=== PATIENT | male | born 1950 | race Caucasian/White ===

== ENCOUNTER 2023-08-30 08:48 | Outpatient (CLI) | payer MEDICARE, OTHER, SELFPAY ==
--- NOTE | 2023-08-30 09:05 | ECG_ITS ---
Measurements Intervals [place] Rate: 59 P: 25 NH: 197 QRS: -38 QRSD: 104 T: 120 QT: 400 QTc: 397 Interpretive Statements SINUS BRADYCARDIA LEFT AXIS DEVIATION PATTERN CONSISTENT WITH PULMONARY DISEASE MODERATE T-WAVE ABNORMALITY, CONSIDER LATERAL ISCHEMIA ABNORMAL ECG NO PREVIOUS ECG AVAILABLE FOR COMPARISON Electronically Signed On 08-30-2023 17:16:42 CDT by Dave Michael M.D.
== END 2023-08-30 08:49 | disposition home or self-care (01) ==
LOC: ANHSURGERY 08:54
PROVIDERS: PCP Family Medicine; Visit Provider Surgery
DX: I21.9 Acute myocardial infarction, unspecified (principal); K40.90 Unilateral inguinal hernia, without obstruction or gangrene, not specified as recurrent; R94.31 Abnormal electrocardiogram [ECG] [EKG]
CPT/HCPCS: 36415; 86850; 86900; 86901; 93005

== ENCOUNTER 2023-09-05 02:11 | Day surgery (SDC) | payer MEDICARE, OTHER, SELFPAY ==
[2023-08-28 15:30] VITALS: BMI 29.3
--- NOTE | 2023-08-28 15:41 | PC.NURSE ---
Addendum entered by Abhay Saul RN 08/28/23 15:52: Shower day of surgery with and antibacterial soap called Hebiclense or Chlorhexadine Gluconate. Original Note: Report to the Outpatient Waiting Room, entrance under the green pavilion located off [facility], at time _1030_ on date _[id number]_. Planned Procedure Time: _1230_. Time changes happen often and if your time is changed the preop area will call you the afternoon before. - You and your visitor will be asked to self-screen and do not enter if you have any COVID symptoms. - A mask is optional within the hospital at this time. Patients may have clear liquids (water, carbonated beverages, clear teas, apple juice) until 3 hours prior to surgery with a maximum of 20 ounces. - No food from midnight until time of surgery Take the following medications with a SIP of water the morning of surgery: __Carvidilol DO NOT STOP ANY OF YOUR OTHER PRESCRIPTION MEDICATIONS PRIOR TO SURGERY ?EXCEPT THE FOLLOWING Medications to discontinue per physician Multivitamin, Vitamin C, Vitamin D3 Date to take last [id number] Please no make-up, nail panamanian, hairspray, perfume, deodorant, or body powder the day of surgery. No jewelry (including any body piercings) or valuables the day of surgery, leave them at home. Please take a shower or bath the night before, or the morning of, surgery with an antibacterial soap. Wear comfortable, loose fitting clothing. - Jewelry must be removed prior to entering the operating room. Rings and piercings that are not removed may be cut off. - The hospital will not accept responsibility for valuables. - Please leave all valuables, including medications, at home the day of surgery. If you are going home after surgery, a licensed limo driver must drive you home. - NO public transportation without another adult if you receive anesthesia. - We recommend that an adult stay with you for 24 hours following discharge. - We also recommend that you do not drive, make important decision, drink alcoholic beverages, or take any drugs that were not prescribed by your health care provider for at least 24 hours after your discharge time. Follow any additional instructions given to you from your surgeon. If you or anyone in your household have experienced Covid symptoms in the past week, please notify your surgeon or the nurse liaison at the phone number below for possible testing. Telephone instructions given to _Patient__and asked if any additional questions and then verbalized understanding. Patient advised to call surgeon office or pre surgery nurse liaison [phone] if any additional questions.
--- NOTE | 2023-09-04 10:21 | PM.SD2 ---
Same Day Admit/Disch: HPI History of Present Illness Chief complaint: Rt Ing Hernia Narrative: Harmeet Leon is a 73 year old male who has had a bulge in the right groin for many years. Recently this has gotten larger and is occasionally painful. He was seen in the office and found to have a large but reducible right inguinal hernia. He is taken to surgery at this time for robotic laparoscopic repair of his right inguinal hernia. [facility] Past Medical History Medical History GERD (gastroesophageal reflux disease) Heart attack history Hypertension Surgical History Surgical History H/O hand surgery History of heart artery stent History of knee replacement History of laparoscopic appendectomy Hx laparoscopic cholecystectomy Family History Family History Other Diabetes mellitus Heart disease Hypertension Social History Social History Smoking packs per day: 1 Smoking cigarettes per day: 20.0 Years smoked: 35 Smoking pack-years: 35.00 Smoking status: Former smoker Tobacco type: cigarettes Smoking end date: 09/05/06 Alcohol intake: current Substance use: never Living arrangements: with family Occupation/Education: retired Spiritual care concerns: No Same Day Admit/Disch: Med Pre-admit Medications Home Medications Medication Instructions Recorded Confirmed Type amlodipine 5 mg-benazepril 10 mg 1 cap PO DAILY 07/30/23 08/28/23 History capsule ascorbate calcium (vitamin C) 500 500 mg PO DAILY 07/30/23 08/28/23 History mg tablet aspirin 81 mg capsule 81 mg PO DAILY 07/30/23 08/28/23 History carvedilol 3.125 mg tablet 3.125 mg PO Q12H 07/30/23 08/28/23 History cholecalciferol (vitamin D3) 125 125 mcg PO DAILY 07/30/23 08/28/23 History mcg (5,000 unit) capsule diclofenac sodium 75 mg 75 mg PO BID 07/30/23 08/28/23 History tablet,delayed release lvirhtfs-za-[id number] 300 mcg-K 60 1 tablet PO DAILY 07/30/23 08/28/23 History mcg-lycop 600 mcg-lutein 300 mcg tablet (Centrum Silver Men) omeprazole 20 mg capsule,delayed 20 mg PO DAILY 07/30/23 08/28/23 History release rosuvastatin 5 mg tablet 5 mg PO DAILY 07/30/23 08/28/23 History valacyclovir 500 mg tablet 500 mg PO DAILY 07/30/23 08/28/23 History ibuprofen 600 mg tablet 600 mg PO Q6H PRN pain #14 tabs 09/05/23 Rx oxycodone-acetaminophen 5 mg-325 0.5 - 1 tablet PO Q6H PRN pain #15 09/05/23 Rx mg tablet tabs Review of Systems Review of Systems All systems reviewed & are unremarkable except as noted in HPI and below (HPI and those items noted below) Constitutional Constitutional: Denies chills and Denies fever(s) Cardiovascular Cardiovascular: Denies chest pain, Denies diaphoresis, Denies dyspnea and Denies paroxysmal nocturnal dyspnea Respiratory Respiratory: Denies chest congestion, Denies cough and Denies dyspnea Integumentary/Breasts Skin/Breast: Denies lesions and Denies rash Exam Const: General: comfortable, no acute distress, alert and awake HENMT: Head: normocephalic and atraumatic Mouth: Yes Normal oral and palatal mucosa present Eyes: Conjunctivae: conjunctivae normal Pupils: Equal, round and reactive pupils present EOM: EOMs intact bilaterally Neck: Neck: normal visual inspection, no lymphadenopathy and nontender Resp: Effort & Inspection: normal respiratory effort Auscultation: clear to auscultation bilaterally Cardio: Rate: regular rate Rhythm: regular rhythm Heart sounds: no gallops, no murmurs and no rubs GI: Inspection: non-distended GI Palp: Yes Soft to palpation, No Tenderness to palpation present (GI), No Hepatomegaly present and No Splenomegaly present : Male General Exam: No edema, Yes hernia (Reducible large right inguinal hernia, minimal tenderness) and No tenderne
[2023-09-05] VITALS (10 sets, daily range): BP systolic 132–166; BP diastolic 62–79; PULSE 57–78; RESP 12–18; TEMP 36.1–36.6; O2SAT 92–98
[2023-09-05] MEDS: ACETAMINOPHEN 500 MG TABLET 1000 MG PO (10:44)
[2023-09-05] MEDS: LACTATED RINGERS 1,000 ML 30 ML IV CONT ×2 (11:15→14:42)
[2023-09-05] MEDS: KETOROLAC 15 MG/ML VIAL (*BKC) IV PUSH (11:18)
--- NOTE | 2023-09-05 11:18 | WPDANESEPPF ---
Anes - Initial Pre Proc Eval Procedure: Operation Date: 09/05/23 12:30 Proposed Procedures p Robotic Laparoscopic Right Inguinal Hernia Repair with Mesh - Johnathan Castro MD Date/Time: 09/05/23 11:18 Surgeon: Johnathan Castro MD Pre Op Diagnosis: Rt Ing Hernia Patient Data Age: 73 Gender: M Height: 1.83 m Weight: 99.4 kg Last Vital Signs Temp 98 F 09/05/23 10:51 Pulse 57 L 09/05/23 10:51 Resp 16 09/05/23 10:51 BP 149/79 H 09/05/23 10:51 Pulse Ox 98 09/05/23 10:51 O2 Del Method Room Air 09/05/23 10:51 Allergies Allergy/AdvReac Type Severity Reaction Status Date / Time No Known Allergies Allergy Verified 08/28/23 15:26 Home Medications Medication Instructions Recorded Confirmed Type amlodipine 5 mg-benazepril 10 mg 1 cap PO DAILY 07/30/23 08/28/23 History capsule ascorbate calcium (vitamin C) 500 500 mg PO DAILY 07/30/23 08/28/23 History mg tablet aspirin 81 mg capsule 81 mg PO DAILY 07/30/23 08/28/23 History carvedilol 3.125 mg tablet 3.125 mg PO Q12H 07/30/23 08/28/23 History cholecalciferol (vitamin D3) 125 125 mcg PO DAILY 07/30/23 08/28/23 History mcg (5,000 unit) capsule diclofenac sodium 75 mg 75 mg PO BID 07/30/23 08/28/23 History tablet,delayed release [id number]-[id number] 300 mcg-K 60 1 tablet PO DAILY 07/30/23 08/28/23 History mcg-lycop 600 mcg-lutein 300 mcg tablet (Centrum Silver Men) omeprazole 20 mg capsule,delayed 20 mg PO DAILY 07/30/23 08/28/23 History release rosuvastatin 5 mg tablet 5 mg PO DAILY 07/30/23 08/28/23 History valacyclovir 500 mg tablet 500 mg PO DAILY 07/30/23 08/28/23 History Patient hx anesthesia problems: none Family hx anesthesia problems: none Results Review: All pre-operative results and documents have been reviewed as part of the pre-operative evaluation. [facility] Past Medical History Medical History GERD (gastroesophageal reflux disease) Heart attack history Hypertension Surgical History Surgical History H/O hand surgery History of heart artery stent History of knee replacement History of laparoscopic appendectomy Hx laparoscopic cholecystectomy Family History Family History Other Diabetes mellitus Heart disease Hypertension Social History Social History Smoking packs per day: 1 Smoking cigarettes per day: 20.0 Years smoked: 35 Smoking pack-years: 35.00 Smoking status: Former smoker Tobacco type: cigarettes Smoking end date: 09/05/06 Alcohol intake: current Substance use: never Living arrangements: with family Occupation/Education: retired Spiritual care concerns: No Anes - Eval Final PreProcedure Day of Procedure 09/05/23 11:18 Patient weight: obese Heart: regular rate and rhythm Lungs: clear to auscultation Airway: Mallampati scale class II Neurological: alert and oriented Last oral intake: >/= 8 hours ASA classification: III Emergent: no Anesthetic plan: proceed Anesthesia type and monitoring: general ETT and standard monitoring Results Review: All pre-operative results and documents have been reviewed as part of the pre-operative evaluation. Informed Consent: The patient's anesthetic plan and its attendant risks and benefits were discussed with the patient/family/POA. Questions were solicited and answers provided to the satisfaction of the patient/family/POA.
--- NOTE | 2023-09-05 12:08 | WPDHPUPDATE1 ---
History and Physical Update Update Date/Time: 09/05/23 12:08 History and Physical has been reviewed, including an updated exam of the patient. There are NO changes in the patient's condition. Risks, benefits, and alternatives have been discussed and questions answered. Patient agrees to proceed with procedure.
[2023-09-05] MEDS: ceFAZolin 2 GM/D5W 50 ML 2 GM/50 ML BAG IVPB (12:27)
[2023-09-05] MEDS: BUPIVACAINE/EPINEPHRINE 0.5% 50 ML VIAL 30 ML INFILTRATE (13:07)
--- NOTE | 2023-09-05 14:32 | W.PM.PROC2 ---
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 Recently it has gotten bigger and is occasionally painful. He was seen in the office and found to have a reducible right inguinal hernia. He is taken to surgery now for robotic laparoscopic repair. Findings Patient had a large indirect right inguinal hernia that did extend over slightly into the direct space as well. There was no bowel involvement. Description of Procedure Patient was taken to the operating room in induced into general anesthesia. Prep and drape was carried out. The 3 trocar sites for the anticipated incisions were marked on the skin. Local was infiltrated into each of the incisions as well as the abdominal wall. Incisions were made and at 1st the varies needle was introduced. After adequate insufflation, an applied Medical 5 mm optical trocar was placed. This showed intraperitoneal location without any evidence of injury. The hernia defect was seen. The other 2 trocar sites had 8 mm robotic ports placed by the assistant operator under direct visualization. The camera was moved and the 5 mm port was then changed out for a 3rd 8 mm robotic port. Patient was placed in Trendelenburg. Robot was brought into the field. The camera was docked and targeted. The operating arms had instruments placed. The surgeon then went to the robotic console. A peritoneal flap was created over the inguinal canal area. The peritoneum was carefully dissected free from the abdominal wall. We proceeded from lateral to medial. On the medial aspect, dissection was aimed closer to the posterior aspect of the right rectus muscle. This plane was followed down to Peterson's ligament and the pubis. Dissection extended across the midline in the left rectus muscle, medial border, was exposed. Dissection was carried out so that the mesh would be able to go across the midline medially. I then dissected down to the pubis and Peterson's ligament. We dissected some fatty tissue off of Peterson's ligament and then dissected a bit below the pubis so the posterior aspect of the mesh could be seated there. I then went back to the lateral aspect of dissection and continued to dissect the peritoneum free from the abdominal wall. Once we were below the pectinate line, I then turned my attention to the large hernia sac. Placing some traction on the hernia sac I then carefully dissected it free from the transversalis sling and gradually created more traction on the hernia sac. There was some lipomatous tissue of the cord which was also dissected free and removed. Care was taken to avoid any of the cord structures and with medial traction of the sac, the vascular structures overlying the hernia sac laterally were carefully dissected off the sac. Minimal bleeding occurred. Repeating this process, eventually I came to the into the peritoneum. I was able to dissect the into the hernia sac from the cord structures starting anterior and proceeding posterior being careful to not injure any of the cord structures. This dissection was continued and eventually all the cord structures were dissected free of the hernia sac and from the posterior peritoneum as well. There was some additional fatty tissue medial to the cord structures which was dissected and removed. Further dissection posterior to the pubis was carried out. I then checked in the hernia defect and found yet another large lipoma which I reduced and removed. From here I checked to make sure that the peritoneum was dissected well below the pectinate line laterally in that the cord structures were free of the peritoneum at least 4 cm posterior to the lower margin of the h
== END 2023-09-05 17:20 | disposition home or self-care (01) ==
PROVIDERS: PCP Family Medicine; Visit Provider Surgery
PROC: 8E0Y4CZ Robotic Assisted Procedure of Lower Extremity, Percutaneous Endoscopic Approach (ICD-10-PCS; CPT 49650; principal; 2023-09-05 12:30)
DX: K40.90 Unilateral inguinal hernia, without obstruction or gangrene, not specified as recurrent (principal); I10 Essential (primary) hypertension; I25.2 Old myocardial infarction; K21.9 Gastro-esophageal reflux disease without esophagitis; Z95.5 Presence of coronary angioplasty implant and graft; Z87.891 Personal history of nicotine dependence; Z79.82 Long term (current) use of aspirin; E66.9 Obesity, unspecified; Z68.29 Body mass index [BMI] 29.0-29.9, adult
CPT/HCPCS: 49650; S2900; A9270; C1781; J0690; J1170; J1885; J2250; J2704; J3010; J7120